=== PATIENT | female | born 1950 | race Caucasian/White ===

== ENCOUNTER → 2017-04-10 | Day surgery (SDC) | payer OTHER | END | disposition home or self-care (01) | LOC: ADM 04-06 12:30 → AMB-ENDOS 06:10 | DX: D12.3 Benign neoplasm of transverse colon (principal); K57.30 Diverticulosis of large intestine without perforation or abscess without bleeding; D12.2 Benign neoplasm of ascending colon ==

== ENCOUNTER 2021-06-14 12:45 | Inpatient (IN) | payer OTHER ==
[~2021-06-14] VITALS: Ht 157.5 cm; Wt 64.4 kg
[2021-06-14] MEDS ORDERED: ATORVASTATIN CA40 MG PO (14:11)
[2021-06-14] MEDS ORDERED: TOPROL XL100 M1 PO (14:11)
[2021-06-14] MEDS ORDERED: ADULT LOW DOSE81 M1 PO (14:12)
[2021-06-14] MEDS ORDERED: DYRENIUM50 MG PO (15:43)
[2021-06-16] MEDS ORDERED: CLONAZEPAM0.5 MG (10:08)
[2021-06-16] MEDS ORDERED: TRIAMTERENE-HC1 EAC3 (10:09)
== END 2021-06-17 08:54 | disposition home or self-care (01) | DRG 735 ==
LOC: O/R 06-16 06:15 → SURH 06-16 12:45 → OB/GYN 06-16 19:19 → SURH 06-16 19:21
PROVIDERS: ADMIT Obstetrics & Gynecology Gynecologic Oncology; ATTEND Obstetrics & Gynecology Gynecologic Oncology
PROC: 07TC4ZZ Resection of Pelvis Lymphatic, Percutaneous Endoscopic Approach (ICD-10-PCS; 2021-06-16)
PROC: 0UT74ZZ Resection of Bilateral Fallopian Tubes, Percutaneous Endoscopic Approach (ICD-10-PCS; 2021-06-16)
PROC: 0UT24ZZ Resection of Bilateral Ovaries, Percutaneous Endoscopic Approach (ICD-10-PCS; 2021-06-16)
PROC: 0UT94ZZ Resection of Uterus, Percutaneous Endoscopic Approach (ICD-10-PCS; principal; 2021-06-16 14:30)
DX: D27.1 Benign neoplasm of left ovary (principal); Z20.822 Contact with and (suspected) exposure to COVID-19